=== PATIENT | male | born 2005 | race African-American/Black ===

== ENCOUNTER 2024-06-22 12:33 | Emergency (ER) | payer MEDICAID, OTHER ==
[~2024-06-22] VITALS: Ht 167.6 cm; Wt 48.5 kg
[2024-06-22 12:41] VITALS: BP 107/61; TEMP 98.6; O2SAT 100
[2024-06-22] MEDS ORDERED: POLY10DR OP (12:51)
== END 2024-06-22 13:14 | disposition home or self-care (01) ==
LOC: ER 12:38
DX: H10.9 Unspecified conjunctivitis (principal)